=== PATIENT | male | born 1970 | race Caucasian/White ===

== ENCOUNTER 2019-12-28 11:22 | Inpatient (IN) | payer MEDICAID, OTHER ==
[~2019-12-28] VITALS: Ht 154.9 cm; Wt 109.1 kg
[~2019-12-28 11:22] MED LIST: ALBU1.257 IH; ALBU18HF2 IH; ATR0.5NEB IH; CARV3.12 PO; FURO20TA4 PO; ZES10T PO
[2019-12-28] MEDS: heparin 25,000 UNIT/250ml bag 250 ML IV SCH ×2 (11:55→18:48)
[2019-12-28] MEDS: heparin 10,000 units/1 ML INJ IV PRN (11:57)
[2019-12-28 12:33] LABS: BASOPHILS # (AUTO) 0.1 X10'3 (0-0.2); BASOPHILS % (AUTO) 0.6 % (0-1); EOSINOPHILS # (AUTO) 0.1 X10'3 (0-0.9); EOSINOPHILS % (AUTO) 0.9 % (0-6); HEMATOCRIT 44.5 % (42.0-52.0); HEMOGLOBIN 14.9 g/dl (14.0-17.9); LYMPHOCYTES # (AUTO) 0.6 X10'3 (1.1-4.8); LYMPHOCYTES % (AUTO) 7.2 % (21-51); MEAN CORPUSCULAR HEMOGLOBIN 31.3 PG (27.0-31.0); MEAN CORPUSCULAR HGB CONC 33.5 g/dL (33.0-36.5); MEAN CORPUSCULAR VOLUME 93.3 FL (78-98); MEAN PLATELET VOLUME 7.9 FL (7.4-10.4); MONOCYTES # (AUTO) 0.2 X10'3 (0-0.9); MONOCYTES % (AUTO) 2.4 % (2-12); NEUTROPHILS # (AUTO) 7.1 X10'3 (1.8-7.7); NEUTROPHILS % (AUTO) 88.9 % (42-75); PLATELET COUNT 212 X10'3 (140-440); RED BLOOD COUNT 4.78 X10'6 (4.70-6.10); RED CELL DISTRIBUTION WIDTH 13.2 % (11.5-14.5); WHITE BLOOD COUNT 7.9 X10'3 (4.5-11.0)
[2019-12-28 12:47] LABS: ALANINE AMINOTRANSFERASE 73 U/L (12-78); ALBUMIN 3.6 G/DL (3.4-5.0); ALKALINE PHOSPHATASE 59 IU/L (46-116); ANION GAP 8 (8-16); ASPARTATE AMINO TRANSFERASE 39 U/L (10-37); BILIRUBIN,TOTAL 0.6 MG/DL (0.1-1.0); BLOOD UREA NITROGEN 15 MG/DL (7-18); BUN/CREATININE RATIO 12.3 (5.4-32.0); CALCIUM 8.4 MG/DL (8.5-10.1); CHLORIDE 103 MMOL/L (99-107); CREATININE 1.22 MG/DL (0.60-1.10); GLUCOSE 139 MG/DL (70-104); POTASSIUM 3.8 MMOL/L (3.5-5.1); SODIUM 138 MMOL/L (135-145); TOTAL CARBON DIOXIDE 27.2 MMOL/L (24-32); TOTAL PROTEIN 7.3 G/DL (6.4-8.2); eGFR 63 ML/MIN
[2019-12-28 12:59] LABS: D-DIMER 0.56 MG/L FEU (0-0.50)
[2019-12-28 13:01] LABS: PARTIAL THROMBOPLASTIN TIME 119 SECONDS (22-32)
--- NOTE | 2019-12-28 13:07 | NUR ---
Primary RN Salinas notified of critical and Dr. Gardner's orders regarding elevated PTT.
--- NOTE | 2019-12-28 13:33 | NUR ---
ptt 119 heprin stopped redraw timed for 1500
[2019-12-28] MEDS ORDERED: mag hydrox/Alum hydrox/simeth 30ml oral suspension PO PRN (13:35)
[2019-12-28] MEDS ORDERED: ondansetron/PF 4mg/2ml inj IV PRN (13:35)
[2019-12-28] MEDS ORDERED: heparin 10,000 units/1 ML INJ IV PRN (13:35)
[2019-12-28] MEDS ORDERED: metoprolol tartrate 1mg/ml inj IV PRN (13:35)
[2019-12-28] MEDS ORDERED: acetaminophen 325mg tablet PO PRN (13:35)
[2019-12-28] MEDS ORDERED: magnesium 4gm in 100ml NS 100 ML IV PRN (13:35)
[2019-12-28] MEDS ORDERED: aminophylline 250mg/10ml inj. IV PRN (13:35)
[2019-12-28] MEDS ORDERED: nitroGLYCERIN 0.4mg SUBLingual tab SL PRN (13:35)
[2019-12-28] MEDS ORDERED: regadenoson 0.4mg/5ml syringe IV PRN (13:35)
[2019-12-28] MEDS ORDERED: potassium Cl 20 mEq SR tablet PO PRN ×2 (13:35)
[2019-12-28] MEDS ORDERED: heparin 25,000 UNIT/250ml bag 250 ML IV SCH (13:35)
[2019-12-28] MEDS ORDERED: magnesium 2GM in 50ml NS 50 ML IV PRN (13:35)
[2019-12-28] MEDS ORDERED: potassium CL 10mEq/100ml bag 100 ML IV PRN ×2 (13:35)
[2019-12-28] MEDS ORDERED: furosemide 10 MG/1 ML 10ml inj IV ONE (13:35)
[2019-12-28] MEDS ORDERED: nitroGLYCERIN 0.4mg/hour patch TD SCH (13:55)
[2019-12-28] MEDS ORDERED: atorvastatin 20mg tablet PO SCH (13:55)
[2019-12-28 14:20] LABS: CHOL/HDL RATIO 3.4 (0.00-4.99); CHOLESTEROL 201 MG/DL (0-200); HDL CHOLESTEROL 60 MG/DL (35-60); LDL CHOLESTEROL 130 MG/DL (50-100); TRIGLYCERIDES 26 MG/DL (20-135)
[2019-12-28 15:20] VITALS: BP 131/81
[2019-12-28 18:00] VITALS: BP 104/55
--- NOTE | 2019-12-28 18:00 | NUR ---
kae reprioritized. Patient report given, questions answered & plan of care reviewed with Oleg RN[].
--- NOTE | 2019-12-28 18:30 | NUR ---
Patient in room PCU 3012. I have received report from Dalila ONEIL and had the opportunity to ask questions and assume patient care.
[2019-12-28] MEDS: ipratropium/albuterol 3ml nebule NEB PRN (19:49)
[2019-12-28] MEDS ORDERED: metoprolol tartrate 50mg tablet PO SCH (20:00)
[2019-12-28] MEDS ORDERED: K and/or MAG REPLACEMENT MC SCH (20:00)
[2019-12-28] MEDS ORDERED: docusate sod 100mg capsule PO SCH (20:00)
[2019-12-28 23:00] VITALS: BP 122/78
[2019-12-29 00:44] LABS: BASOPHILS % (AUTO) 0.5 % (0-1); EOSINOPHILS % (AUTO) 0 % (0-6); HEMATOCRIT 40.9 % (42.0-52.0); HEMOGLOBIN 13.9 g/dl (14.0-17.9); LYMPHOCYTES # (AUTO) 0.7 X10'3 (1.1-4.8); LYMPHOCYTES % (AUTO) 7.1 % (21-51); MEAN CORPUSCULAR HEMOGLOBIN 31.4 PG (27.0-31.0); MEAN CORPUSCULAR VOLUME 92.6 FL (78-98); MEAN PLATELET VOLUME 8.2 FL (7.4-10.4); MONOCYTES # (AUTO) 0.3 X10'3 (0-0.9); NEUTROPHILS # (AUTO) 8.7 X10'3 (1.8-7.7); NEUTROPHILS % (AUTO) 89.4 % (42-75); PLATELET COUNT 212 X10'3 (140-440); RED BLOOD COUNT 4.41 X10'6 (4.70-6.10); RED CELL DISTRIBUTION WIDTH 13.1 % (11.5-14.5); WHITE BLOOD COUNT 9.7 X10'3 (4.5-11.0)
[2019-12-29 00:57] LABS: ALANINE AMINOTRANSFERASE 57 U/L (12-78); ALBUMIN 3.2 G/DL (3.4-5.0); ALKALINE PHOSPHATASE 50 IU/L (46-116); ANION GAP 9 (8-16); ASPARTATE AMINO TRANSFERASE 26 U/L (10-37); BILIRUBIN,TOTAL 0.6 MG/DL (0.1-1.0); BLOOD UREA NITROGEN 22 MG/DL (7-18); BUN/CREATININE RATIO 16.3 (5.4-32.0); CALCIUM 8.3 MG/DL (8.5-10.1); CHLORIDE 105 MMOL/L (99-107); CREATININE 1.35 MG/DL (0.60-1.10); GLUCOSE 147 MG/DL (70-104); POTASSIUM 3.9 MMOL/L (3.5-5.1); SODIUM 140 MMOL/L (135-145); TOTAL CARBON DIOXIDE 25.7 MMOL/L (24-32); TOTAL PROTEIN 6.5 G/DL (6.4-8.2); eGFR 56 ML/MIN
[2019-12-29 01:00] LABS: MAGNESIUM 1.8 MG/DL (1.5-2.4)
[2019-12-29] MEDS: heparin 10,000 units/1 ML INJ IV PRN (01:16)
[2019-12-29 03:00] VITALS: BP 107/71
[2019-12-29] MEDS: ipratropium/albuterol 3ml nebule NEB PRN (05:33)
--- NOTE | 2019-12-29 06:00 | NUR ---
Patient in room PCU 3012. I have received report from Oleg RN and had the opportunity to ask questions and assume patient care.
--- NOTE | 2019-12-29 06:13 | NUR ---
Problems reprioritized. Patient report given, questions answered & plan of care reviewed with Dalila ONEIL.
--- NOTE | 2019-12-29 07:39 | NUR ---
Nuc med came up to inject pt for stress test and pt declined the stress test . He states he is leaving AMA at 1000 when his can come to get him. Dr. Gottlieb has been notified.
--- NOTE | 2019-12-29 07:41 | NUR ---
Page Sent promotional table spacer PAGER ID: [phone] MESSAGE: [id number]. Markus. Pt declined stress test. He wants to leave AMA at 10 . Dalila [phone] (81 character message out of a maximum of 240) Close [X]
[2019-12-29] MEDS ORDERED: furosemide 20MG tablet PO SCH (08:00)
[2019-12-29] MEDS ORDERED: lisinopril 10 MG tablet PO SCH (08:00)
--- NOTE | 2019-12-29 09:17 | NUR ---
Patient left AMA @0804. He was educated about the consequences of leaving, the high probability of symptoms returning , and the very real chance he could have another heart attack . Patient is non-compliant with home meds and left today before hospital meds were administered. Patient signed AMA. PIV x2 were removed with cannulas intact. Patient was alert, oriented, and angry when he left stating he would just go home and .
== END 2019-12-29 08:05 | disposition left against medical advice (07) | DRG 190 ==
LOC: ER 11:23 → ED HOLD 13:35 → EDBEDREQ 14:28 → PCU 3S 15:05
PROVIDERS: ADMIT Family Medicine; ATTEND Family Medicine
DX: I21.4 Non-ST elevation (NSTEMI) myocardial infarction (principal); I11.0 Hypertensive heart disease with heart failure; F15.10 Other stimulant abuse, uncomplicated; I50.23 Acute on chronic systolic (congestive) heart failure; J45.909 Unspecified asthma, uncomplicated; Z79.51 Long term (current) use of inhaled steroids; Z82.49 Family history of ischemic heart disease and other diseases of the circulatory system
CPT/HCPCS: 36415; 71045; 80053; 80061; 83735; 84484; 85025; 85379; 85610; 85730; 87081; 93005; 93306; 94640; 94760; 99285; G0378; J1644; J1940

== ENCOUNTER 2023-10-14 16:20 | Emergency (ER) | payer MEDICARE, MEDICAID ==
[~2023-10-14] VITALS: Ht 185.4 cm; Wt 86.5 kg
[2023-10-14] VITALS (7 sets, daily range): BP systolic 140–178; BP diastolic 71–106; PULSE 72–86; RESP 15–16; TEMP 98.6; O2SAT 96–98
[~2023-10-14 16:20] MED LIST changes: -ALBU1.257 IH; -ATR0.5NEB IH; -CARV3.12 PO; -FURO20TA4 PO; -ZES10T PO
[2023-10-14] MEDS: pantoprazole 40 MG vial IV ONE (16:51)
[2023-10-14] MEDS: ondansetron/PF 4mg/2ml inj IV ONE (16:51)
[2023-10-14 17:10] LABS: BASOPHILS # (AUTO) 0.1 X10'3 (0-0.2); BASOPHILS % (AUTO) 1.2 % (0-1); EOSINOPHILS # (AUTO) 0.2 X10'3 (0-0.9); EOSINOPHILS % (AUTO) 1.6 % (0-6); HEMOGLOBIN 16.7 g/dl (14.0-17.9); LYMPHOCYTES # (AUTO) 1.3 X10'3 (1.1-4.8); LYMPHOCYTES % (AUTO) 13.4 % (21-51); MEAN CORPUSCULAR HEMOGLOBIN 32.4 PG (27.0-31.0); MEAN CORPUSCULAR HGB CONC 34.8 g/dL (33.0-36.5); MONOCYTES # (AUTO) 0.7 X10'3 (0-0.9); MONOCYTES % (AUTO) 7.6 % (2-12); NEUTROPHILS # (AUTO) 7.4 X10'3 (1.8-7.7); NEUTROPHILS % (AUTO) 76.2 % (42-75); PLATELET COUNT 277 X10'3 (140-440); RED BLOOD COUNT 5.16 X10'6 (4.70-6.10); WHITE BLOOD COUNT 9.7 X10'3 (4.5-11.0)
[2023-10-14 17:20] LABS: ANION GAP 14 (8-16); BLOOD UREA NITROGEN 28 MG/DL (7-18); CALCIUM 9.5 MG/DL (8.5-10.1); CHLORIDE 107 MMOL/L (99-107); CREATININE 1.12 MG/DL (0.60-1.10); GLUCOSE 105 MG/DL (70-104); LIPASE 26 U/L (16-77); MAGNESIUM 2.1 MG/DL (1.5-2.4); POTASSIUM 3.9 MMOL/L (3.5-5.1); SODIUM 145 MMOL/L (135-145); TOTAL CARBON DIOXIDE 24.1 MMOL/L (24-32); eCRCL 84 ML/MIN; eGFR 68 ML/MIN
[2023-10-14] MEDS ORDERED: LIDOcaine 2% Viscous 15ml cup ONE (17:38)
[2023-10-14] MEDS ORDERED: fentaNYL/PF 50MCG/1 ML 2ML syringe ONE (17:38)
[2023-10-14] MEDS ORDERED: MIDAZolam 1 MG/ML 5ML VIAL ONE (17:38)
[2023-10-14] MEDS ORDERED: PANT20TA2 PO (18:24)
== END 2023-10-14 21:26 | disposition home or self-care (01) ==
LOC: ER 16:21
DX: T18.128A Food in esophagus causing other injury, initial encounter (principal); J45.909 Unspecified asthma, uncomplicated; F15.90 Other stimulant use, unspecified, uncomplicated; Z79.899 Other long term (current) drug therapy; W44.F3XA Food entering into or through a natural orifice, initial encounter; Y93.89 Activity, other specified; Y92.89 Other specified places as the place of occurrence of the external cause; Y99.8 Other external cause status
CPT/HCPCS: 36415; 43247; 80048; 83690; 83735; 85025; 96365; 96366; 96375; 99152; 99153; 99291; C9113; J2250; J2405; J3010; J7030; Z7512; A4620; C1889